=== PATIENT | male | born 1945 | race Caucasian/White ===

== ENCOUNTER → 2016-06-18 | Outpatient (CLI) | payer MEDICARE, OTHER | END | disposition home or self-care (01) | LOC: GMAL 12:31 | PROVIDERS: ATTEND Family Medicine | DX: E55.9 Vitamin D deficiency, unspecified (principal) ==

== ENCOUNTER → 2016-09-22 | Outpatient (CLI) | payer MEDICARE, OTHER | END | disposition home or self-care (01) | LOC: GMAL 10:27 | PROVIDERS: ATTEND Family Medicine | DX: E55.9 Vitamin D deficiency, unspecified (principal) ==

== ENCOUNTER → 2016-09-29 | Outpatient (CLI) | payer MEDICARE, OTHER | END | disposition home or self-care (01) | LOC: GMAL 15:05 | PROVIDERS: ATTEND Family Medicine | DX: R97.20 Elevated prostate specific antigen [PSA] (principal) ==

== ENCOUNTER → 2017-01-21 | Outpatient (CLI) | payer MEDICARE, OTHER | END | disposition home or self-care (01) | LOC: GMAL 10:15 | PROVIDERS: ATTEND Family Medicine | DX: N30.01 Acute cystitis with hematuria (principal) ==

== ENCOUNTER → 2017-09-19 | Outpatient (CLI) | payer MEDICARE, OTHER | LOC: GMAL 10:57 | PROVIDERS: ATTEND Family Medicine | DX: D51.3 Other dietary vitamin B12 deficiency anemia (principal); E55.9 Vitamin D deficiency, unspecified; Z85.46 Personal history of malignant neoplasm of prostate ==

== ENCOUNTER → 2017-09-27 | Outpatient (CLI) | payer MEDICARE, OTHER | LOC: GMAL 15:05 | PROVIDERS: ATTEND Family Medicine | DX: R53.81 Other malaise (principal); E29.1 Testicular hypofunction ==

== ENCOUNTER 2018-04-01 14:10 | Emergency (ER) | payer MEDICARE, OTHER ==
[2018-04-01 14:21] VITALS: TEMP 97.2
--- NOTE | 2018-04-01 14:49 | RAD ---
PROCEDURE: XR CHEST 1 VIEW HISTORY: dizziness,chest pressure COMPARISON: 03/27/2007 TECHNIQUE: Single projection of the chest was done. FINDINGS: There is median sternotomy . There are no discrete airspace infiltrates, pneumothoraces or pleural effusions. The pulmonary vascularity is normal. The cardiomediastinal silhouette is unremarkable for patient's age and sex. IMPRESSION: There is no acute pleural-parenchymal process seen in the imaged lung nelson. Location of Interpretation: Teler[facility]iology Electronically signed by: Jordan Reynoso MD 04/01/2018 2:48 PM [employer] Workstation: [id number]
--- NOTE | 2018-04-01 16:00 | ED.PDOC ---
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 Timing/Duration: 1-3 hours Severity: moderate Location: other - see hpi Activities at Onset: activity Prior Chest Pain/Cardiac Workup: cardiac cath, heart attack Improving Factors: rest Worsening Factors: nothing Aspirin Treatment Today: 81 mg x 3 Allergies/Adverse Reactions: Allergies NO KNOWN ALLERGY Allergy (Verified 04/01/18 14:21) Home Medications: Ambulatory Orders Aspirin [Aspirin Adult Low Dose] 81 mg PO DAILY 04/01/18 Atorvastatin Calcium 40 mg PO BEDTIME 04/01/18 Review of Systems - Review of Systems Constitutional: States: no symptoms reported EENTM: States: no symptoms reported Respiratory: States: no symptoms reported Cardiology: States: no symptoms reported Gastrointestinal/Abdominal: States: no symptoms reported Genitourinary: States: no symptoms reported Musculoskeletal: States: no symptoms reported Skin: States: no symptoms reported Neurological: States: see HPI, other - dizzsy Past Medical History (General) - Patient Medical History Hx Stroke: No Hx Cardiac Disorders: Yes - CABG Hx Congestive Heart Failure: No Hx Diabetes: No Hx Cancer: Yes - Prostate Surgical History: coronary bypass surgery - Vaccination History Hx Influenza Vaccination: No Hx Pneumococcal Vaccination: No - Social History Hx Tobacco Use: No Hx Alcohol Use: No Hx Substance Use: No Hx Physical Abuse: No Hx Emotional Abuse: No Family Medical History - Family History Father Family History: Unknown Living Status: Unknown Hx Cardiac Disease: Yes - multiple family members Hx Family;Other: Rossana Gehrigs disease-brother Physical Exam - Physical Exam General Appearance: Alert, Comfortable, No apparent distress Eyes, Ears, Nose, Throat Exam: PERRL/EOMI, normal ENT inspection Neck: non-tender, full range of motion, supple, normal inspection Respiratory: chest non-tender, lungs clear, normal breath sounds Cardiovascular/Chest: normal peripheral pulses, regular rate, rhythm, no murmur Peripheral Pulses: radial,right: 2+, radial,left: 2+ Gastrointestinal/Abdominal: normal bowel sounds, non tender, soft, no organomegaly, no pulsatile mass Extremity: no pedal edema, no calf tenderness Neurologic: no motor/sensory deficits, alert, oriented x 3 Skin Exam: normal color, warm/dry Lymphatic: no adenopathy Progress - Progress Progress: 04/01/18 16:47 Vital Signs - 8 hr 04/01/18 04/01/18 04/01/18 14:18 14:37 15:28 Temperature 97.2 F L Pulse Rate 80 Pulse Rate [ 80 72 Right Brachial] Respiratory 20 16 Rate Blood Pressure 169/87 141/73 [Right Arm] O2 Sat by Pulse 100 99 Oximetry 04/01/18 16:18 Temperature Pulse Rate Pulse Rate [ 67 Right Brachial] Respiratory 20 Rate Blood Pressure 138/72 [Right Arm] O2 Sat by Pulse 99 Oximetry - Results/Orders Results/Orders: 04/01/18 14:30 EKG STAT 04/01/18 14:36 Telemetry .ONCE Pulse Ox Stat Pulse Oximetry Assessment DAILY Laboratory Results - last 24 hr 04/01/18 04/01/18 04/01/18 14:40 15:03 15:05 WBC 4.5 L RBC 4.37 L Hgb 12.8 L Hct 38.0 L MCV 87.0 MCH 29.2 MCHC 33.7 RDW 12.9 Plt Count 144 MPV 7.9 Absolute Neuts (auto) 2.10 Absolute Lymphs (auto) 1.50 Absolute Monos (auto) 0.60 Absolute Eos (auto) 0.20 Absolute Basos (auto) 0.00 Neutrophils % 47.1 Lymphocytes % 33.6 Monocytes % 14.0 H Eosinophils % 4.6 Basophils % 0.7 PT 10.1 INR 1.01 PTT (SP) 24.4 Sodium 136 Potassium 3.3 L Chloride 100 L Carbon Dioxide 27 Anion Gap 12.3 BUN 18 Creatinine 0.90 BUN/Creatinine Ratio 20.0 Random Glucose 120 H Serum Osmolality 275.1 Calcium 9.4 Magnesium 1.9 Total Bilirubin 0.8 Direct Bilirubin 0.1 Indirect Bilirubin 0.7 AST 38 ALT 26 Alkaline Phosphatase 48 Creatine Kinase 256 H* CK-MB (CK-2) 6.4 H* CK-MB (CK-2) % 2.50 Troponin I < 0.02 B-Natriuretic Peptide 82.4 Serum Total Protein 7.1 Albumin 4.4 Urine Color Yellow Urine Appearance Clear Urine pH 6.0 Ur Specific [place] <= 1.005 Urine Protein Negative Urine Glucose (UA) Negative Urine Ketones Negative Urine Blood Negative Urine Nitrite Negative Urine Bilirubin Negative Urine Urobilinogen 0.2 Ur Leukocyte Esterase Negative Urine RBC 0 Urine WBC 0 Ur Epithelial Cells 0 Urine Bacteria 0 04/01/18 16:14 WBC RBC Hgb Hct MCV MCH MCHC RDW Plt Count MPV Absolute Neuts (auto) Absolute Lymphs (auto) Absolute Monos (auto) Absolute Eos (auto) Absolute Basos (auto) Neutrophils % Lymphocytes % Monocytes % Eosinophils % Basophils % PT INR PTT (SP) Sodium Potassium Chloride Carbon Dioxide Anion Gap BUN Creatinine BUN/Creatinine Ratio Random Glucose Serum Osmolality Calcium Magnesium Total Bilirubin Direct Bilirubin Indirect Bilirubin AST ALT Alkaline Phosphatase Creatine Kinase CK-MB (CK-2) CK-MB (CK-2) % Troponin I < 0.02 B-Natriuretic Peptide Serum Total Protein Albumin Urine Color Urine Appearance Urine pH Ur Specific [place] Urine Protein Urine Glucose (UA) Urine Ketones Urine Blood Urine Nitrite Urine Bilirubin Urine Urobilinogen Ur Leukocyte Esterase Urine RBC Urine WBC Ur Epithelial Cells Urine Bacteria Discuss all test result with patient that no myocardial injury on his cardiac enzymes ;recommend hospital obs but stated has cardiology appointment coming this week. - EKG/XRAY/CT EKG: Sinus, nonspecific ST T wave Chg - lateral leads Comments: HR-72 XRAY: chest - no acute abnormalities Departure - Departure Clinical Impression: Near syncope Time of Disposition: 16:57 Disposition: Discharge to Home or Self Care Condition: Fair Departure Forms: ED Discharge - Pt. 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
[2018-04-01 17:05] VITALS: BP 124/75; O2SAT 98
== END 2018-04-01 17:05 | disposition home or self-care (01) ==
LOC: ER 14:10
DX: R55 Syncope and collapse (principal); Z79.82 Long term (current) use of aspirin; Z95.1 Presence of aortocoronary bypass graft; Z79.899 Other long term (current) drug therapy

== ENCOUNTER → 2018-04-06 | Outpatient (CLI) | payer MEDICARE, OTHER | LOC: GMAL 11:16 | PROVIDERS: ATTEND Family Medicine | DX: R53.81 Other malaise (principal) ==

== ENCOUNTER → 2018-10-06 | Outpatient (CLI) | payer MEDICARE, OTHER | LOC: GMAL 10:40 | PROVIDERS: ATTEND Family Medicine | DX: D51.3 Other dietary vitamin B12 deficiency anemia (principal); E78.49 Other hyperlipidemia; R97.20 Elevated prostate specific antigen [PSA]; E55.9 Vitamin D deficiency, unspecified; Z79.899 Other long term (current) drug therapy ==

== ENCOUNTER → 2018-10-16 | Outpatient (CLI) | payer MEDICARE, OTHER ==
--- NOTE | 2018-10-17 08:48 | US ---
EXAM DESCRIPTION: Carotid Duplex CLINICAL HISTORY: CAROTID BRUIT COMPARISON: None Available. TECHNIQUE: Carotid Doppler ultrasound FINDINGS: Right Submitted images show no significant stenosis in the common carotid, internal carotid or external carotid arteries. Soft plaque at the right carotid bulb and proximal ICA. Axial images 27% area stenosis of the proximal right ICA. The following flow velocities were obtained: Common carotid artery peak systolic flow velocity measures 89 centimeters per second. Internal carotid artery peak systolic flow velocity measures 55-70 centimeters per second. External carotid artery peak systolic flow velocity measures 98 centimeters per second. Flow in the right vertebral artery is antegrade. The right internal carotid to common carotid peak systolic flow velocity ratio equals 0.8 which is normal. Left Submitted images show patent left common carotid, internal carotid and external carotid arteries with no significant stenosis. Mild calcified plaque at the left carotid bulb. Axial image shows 26% area stenosis of the proximal left ICA. The following flow velocities were obtained: Common carotid artery peak systolic flow velocity measures 103 centimeters per second. Internal carotid artery peak systolic flow velocity measures 59-68 centimeters per second. External carotid artery peak systolic flow velocity measures 70 centimeters per second. Flow in the left vertebral artery is antegrade. The left internal carotid to common carotid peak systolic flow velocity ratio of 0.7 is normal. IMPRESSION: No hemodynamically significant stenosis. Electronically signed by: Kana Raman MD 10/17/2018 8:46 AM CDT
== END ==
LOC: US 09:00
PROVIDERS: ATTEND Family Medicine
DX: I65.23 Occlusion and stenosis of bilateral carotid arteries (principal)

== ENCOUNTER → 2019-10-12 | Outpatient (CLI) | payer MEDICARE, OTHER | LOC: GMAL 11:39 | PROVIDERS: ATTEND Family Medicine | DX: D51.3 Other dietary vitamin B12 deficiency anemia (principal); R53.81 Other malaise; E55.9 Vitamin D deficiency, unspecified; E78.49 Other hyperlipidemia; R97.20 Elevated prostate specific antigen [PSA]; Z79.899 Other long term (current) drug therapy ==

== ENCOUNTER → 2020-05-27 | Outpatient (CLI) | payer MEDICARE, OTHER | LOC: GMAL 10:54 | PROVIDERS: ATTEND Family Medicine | DX: R97.20 Elevated prostate specific antigen [PSA] (principal); E78.49 Other hyperlipidemia; Z79.899 Other long term (current) drug therapy ==